=== PATIENT | male | born 1945 | race Caucasian/White ===

== ENCOUNTER 2016-07-03 12:00 | Emergency (ER) | payer MEDICARE, OTHER ==
[2016-07-03 12:08] VITALS: BP 151/70; PULSE 71; RESP 16; TEMP 96.9
--- NOTE | 2016-07-03 12:32 | ED ---
ENT HPI - General Chief complaint: ENT Stated complaint: Ringing in Ear Time Seen by Provider: 07/03/16 12:14 Source: patient, RN notes reviewed Mode of arrival: ambulatory Limitations: no limitations - History of Present Illness Initial comments: Patient is 71-year-old male with a chief complaint of ringing in his left ear for approximately one month. Patient reports that this occurred when he was working on his lawnmower backfired and the noise to instructed his eardrum. Patient reports that he size primary care doctor and was told that there is a perforated eardrum. Patient has been placed on sleeping pills and nasal spray as well as Xanax to help him fall asleep due to the ringing. Patient reports that he has a set up an appointment with the [place] ENT specialist however they've not gotten Bactrim. Patient reports that he thinks that the medications he isn' t taking his been drying him out. He reports that he has been trying to stay hydrated. Patient states that he's had normal urination and has no vomiting or other causes of dehydration. Patient states that he does have a perforated right eardrum as well from the past. He states that he has no problems with his right ear. - Related Data Home Medications Medication Instructions Recorded Confirmed Aspirin 1 tab PO DAILY 11/09/13 07/03/16 Lisinopril [Zestril] 10 mg PO DAILY 11/09/13 07/03/16 Metoprolol Tartrate [Lopressor] 25 mg PO BID 11/09/13 07/03/16 Simvastatin [Zocor] 40 tab PO BID 11/09/13 07/03/16 Fluticasone Propionate [Flovent 50 mcg INHALATION 07/03/16 Diskus] Melatonin 3 mg PO 07/03/16 07/03/16 Previous Rx's Medication Instructions Recorded ALPRAZolam [Xanax] 0.5 mg PO HS #10 tablet 11/09/13 Allergies Allergy/AdvReac Type Severity Reaction Status Date / Time No Known Allergies Allergy Verified 07/03/16 12:08 Review of Systems ROS Statement: Those systems with pertinent positive or pertinent negative responses have been documented in the HPI. ROS Other: All systems not noted in ROS Statement are negative. Past Medical History Past Medical History: Hyperlipidemia, Hypertension Additional Past Medical History / Comment(s): psoriasis History of Any Multi-Drug Resistant Organisms: None Reported Past Surgical History: No Surgical Hx Reported Past Psychological History: No Psychological Hx Reported Smoking Status: Former smoker Past Alcohol Use History: None Reported Past Drug Use History: None Reported General Exam Limitations: no limitations General appearance: alert, in no apparent distress Head exam: Present: atraumatic, normocephalic, normal inspection Eye exam: Present: normal appearance, PERRL, EOMI. Absent: scleral icterus, conjunctival injection, periorbital swelling ENT exam: Present: normal exam, mucous membranes moist. Absent: TM's normal bilaterally (Right eardrum perforation at the at o'clock position. Left ear drum appears to be intact possible small perforation over the 9 o'clock position as well.) Neck exam: Present: normal inspection. Absent: tenderness, meningismus, lymphadenopathy Respiratory exam: Present: normal lung sounds bilaterally. Absent: respiratory distress, wheezes, rales, rhonchi, stridor Cardiovascular Exam: Present: regular rate, normal rhythm, normal heart sounds. Absent: systolic murmur, diastolic murmur, rubs, gallop, clicks GI/Abdominal exam: Present: soft, normal bowel sounds. Absent: distended, tenderness, guarding, rebound, rigid Extremities exam: Present: normal inspection, full ROM, normal capillary refill. Absent: tenderness, pedal edema, joint swelling, calf tenderness Back exam: Present: normal inspection Neurological exam: Present: alert, oriented X3, CN II-XII intact Psychiatric exam: Present: normal affect, normal mood Skin exam: Present: warm, dry, intact, normal color. Absent: rash Course Vital Signs 07/03/16 12:02 Temperature 96.9 F L Pulse Rate 71 Respiratory 16 Rate Blood Pressure 151/70 O2 Sat by Pulse 95 Oximetry Medical Decision Making - Medical Decision Making Patient is 71-year-old male with a chief complaint of ringing in his left ear for approximately one month. Patient reports that this occurred when he was working on his lawnmower backfired and the noise to instructed his eardrum. Patient reports that he size primary care doctor and was told that there is a perforated eardrum. Patient has been placed on sleeping pills and nasal spray as well as Xanax to help him fall asleep due to the ringing. Patient advised to follow-up with ENT specialist. I did recommend for him to try Leibold flavonoid [id number] medication. Also recommended for him to continue to use the sleeping pills and nasal sprays. Discussed to remain hydrated and follow -up with ENT specialist. Return parameters discussed. Patient understands treatment plan and will comply. Disposition Clinical Impression: Tinnitus, left ear Disposition: HOME SELF-CARE Condition: Good Instructions: Tinnitus (ED) Additional Instructions: Make sure the patient remains hydrated and drinks 64 ounces of water daily. Patient also advised to purchase lipoflavonoid OTC pills for tinnitus from a drug store. Continue to take anxiety and nasal spray medication. Also use saline nasal spray for dryness. Referrals: Eliud Quezada DO [Primary Care Provider] - 1-2 days Sly Foley DO [Doctor of Osteopathic Medicine] - 1-2 days Time of Disposition: 12:30
== END 2016-07-03 13:00 | disposition home or self-care (01) ==
LOC: EC 12:00
DX: H93.12 Tinnitus, left ear (principal); I10 Essential (primary) hypertension; E78.5 Hyperlipidemia, unspecified; Z87.891 Personal history of nicotine dependence; Z79.82 Long term (current) use of aspirin; Z79.51 Long term (current) use of inhaled steroids; Z79.899 Other long term (current) drug therapy
CPT/HCPCS: 99283

== ENCOUNTER 2016-07-25 12:42 | Emergency (ER) | payer OTHER ==
--- NOTE | 2016-07-25 15:25 | ED ---
General Adult HPI - General Chief complaint: Urogenital Stated complaint: Male Time Seen by Provider: 07/25/16 15:11 Source: patient, RN notes reviewed Mode of arrival: ambulatory Limitations: no limitations - History of Present Illness Initial comments: Patient is a pleasant [age]-year-old male presenting to the emergency department complaining of difficulty with urination. Onset was a few weeks ago. Patient was taking vitamins for tinnitus and feels this plate a factor. Patient stopped taking them several days ago however symptoms are getting worse. Patient states he feels like he frequently needs to urinate and has difficult time getting started. does not feel he is retaining urine. No suprapubic fullness. No dysuria or hematuria. No fever. No history of similar symptoms previously. - Related Data Home Medications Medication Instructions Recorded Confirmed Aspirin 325 mg PO DAILY 11/09/13 07/25/16 ALPRAZolam [Xanax] 0.5 mg PO DAILY PRN 07/25/16 07/25/16 Atenolol [Tenormin] 25 mg PO BID 07/25/16 07/25/16 Ergocalciferol [Vitamin D2] 50,000 unit PO Q7D 07/25/16 07/25/16 Lisinopril 40 mg PO DAILY 07/25/16 07/25/16 Pravastatin Sodium [Pravachol] 40 mg PO HS 07/25/16 07/25/16 Allergies Allergy/AdvReac Type Severity Reaction Status Date / Time No Known Allergies Allergy Verified 07/25/16 15:07 Review of Systems ROS Statement: Those systems with pertinent positive or pertinent negative responses have been documented in the HPI. ROS Other: All systems not noted in ROS Statement are negative. Constitutional: Denies: fever Eyes: Denies: eye pain ENT: Denies: ear pain Respiratory: Denies: cough Cardiovascular: Denies: chest pain Endocrine: Denies: fatigue Gastrointestinal: Denies: abdominal pain Genitourinary: Reports: urgency, frequency. Denies: dysuria Musculoskeletal: Denies: back pain Skin: Denies: rash Past Medical History Past Medical History: Hyperlipidemia, Hypertension Additional Past Medical History / Comment(s): psoriasis, tinnitus History of Any Multi-Drug Resistant Organisms: None Reported Past Surgical History: No Surgical Hx Reported Past Psychological History: No Psychological Hx Reported Smoking Status: Former smoker Past Alcohol Use History: None Reported Past Drug Use History: None Reported General Exam Limitations: no limitations General appearance: alert, in no apparent distress Head exam: Present: atraumatic Eye exam: Present: normal appearance, PERRL ENT exam: Present: normal oropharynx Neck exam: Present: normal inspection Respiratory exam: Present: normal lung sounds bilaterally Cardiovascular Exam: Present: regular rate, normal rhythm GI/Abdominal exam: Present: soft. Absent: tenderness exam: Present: normal inspection. Absent: testicular tenderness, urethral discharge, scrotal swelling Extremities exam: Present: normal inspection. Absent: pedal edema Neurological exam: Present: alert Psychiatric exam: Present: normal affect, normal mood Skin exam: Absent: rash Course Vital Signs 07/25/16 07/25/16 13:36 15:36 Temperature 98.2 F 97.7 F Pulse Rate 75 72 Respiratory 16 18 Rate Blood Pressure 141/68 157/57 O2 Sat by Pulse 94 L 95 Oximetry - Reevaluation(s) Reevaluation #1: 07/25/16 15:24 Patient did urinate recently in the waiting room. Bladder scan with 387 mL Disposition Clinical Impression: Urinary retention Disposition: HOME SELF-CARE Condition: Stable Instructions: Urinary Retention in Men (ED) Additional Instructions: Please follow-up with urology within 1 week, phone number provided. Return for pain, fevers, worsening symptoms or any other concerns. Please discontinue vitamins for ringing of the ear Referrals: Eliud Quezada DO [Primary Care Provider] - 1-2 days Albaro Arana MD [STAFF PHYSICIAN] - 1-2 days Time of Disposition: 15:39
[2016-07-25 15:57] VITALS: BP 157/57; PULSE 72; RESP 18; TEMP 97.7
== END 2016-07-25 16:33 | disposition home or self-care (01) ==
LOC: EC 12:42
DX: R33.9 Retention of urine, unspecified (principal); E78.5 Hyperlipidemia, unspecified; I10 Essential (primary) hypertension; Z79.82 Long term (current) use of aspirin; Z79.899 Other long term (current) drug therapy; Z87.891 Personal history of nicotine dependence
CPT/HCPCS: 51702; 51798; 99283

== ENCOUNTER 2016-07-31 17:41 | Emergency (ER) | payer MEDICARE, OTHER ==
[2016-07-31 17:45] VITALS: RESP 20; TEMP 97.8
[2016-07-31 18:43] VITALS: BP 132/78; PULSE 69
--- NOTE | 2016-07-31 18:44 | ED ---
General Adult HPI - General Chief complaint: Urogenital Stated complaint: Catheter problems Time Seen by Provider: 07/31/16 18:29 Source: patient, RN notes reviewed Mode of arrival: ambulatory Limitations: no limitations - History of Present Illness Initial comments: Patient is a 71-year-old male who presents emergency room today with a chief complaint of some urinary retention. Patient patient mitts that he had recently been seen here in the emergency room for urinary retention and had a full catheter placed. He states he had this taken out at the urologist office yesterday. States he was doing well yesterday. States today at times she's feels like he is retaining some urine. He states he feels it is not completely emptying his bladder at times. He denies any other complaints or associated symptoms at this time. Patient denies any recent fever, chills, shortness of breath, chest pain, back pain, abdominal pain, nausea or vomiting, numbness, headache, visual change, or any other complaints. - Related Data Home Medications Medication Instructions Recorded Confirmed Aspirin 325 mg PO AC-SUPPER 11/09/13 07/31/16 ALPRAZolam [Xanax] 0.5 mg PO HS PRN 07/25/16 07/31/16 Atenolol [Tenormin] 25 mg PO BID 07/25/16 07/31/16 Ergocalciferol [Vitamin D2] 50,000 unit PO HUNTER 07/25/16 07/31/16 Lisinopril 40 mg PO DAILY 07/25/16 07/31/16 Pravastatin Sodium [Pravachol] 80 mg PO AC-SUPPER 07/25/16 07/31/16 Allergies Allergy/AdvReac Type Severity Reaction Status Date / Time No Known Allergies Allergy Verified 07/31/16 18:53 Review of Systems ROS Statement: Those systems with pertinent positive or pertinent negative responses have been documented in the HPI. ROS Other: All systems not noted in ROS Statement are negative. Past Medical History Past Medical History: Hyperlipidemia, Hypertension, Prostate Disorder Additional Past Medical History / Comment(s): psoriasis, tinnitus History of Any Multi-Drug Resistant Organisms: None Reported Past Surgical History: No Surgical Hx Reported Past Psychological History: No Psychological Hx Reported Smoking Status: Former smoker Past Alcohol Use History: None Reported Past Drug Use History: None Reported General Exam Limitations: no limitations General appearance: alert, in no apparent distress Head exam: Present: atraumatic, normocephalic, normal inspection Eye exam: Present: normal appearance, PERRL, EOMI. Absent: scleral icterus, conjunctival injection, periorbital swelling ENT exam: Present: normal exam, mucous membranes moist Neck exam: Present: normal inspection. Absent: tenderness, meningismus, lymphadenopathy Respiratory exam: Present: normal lung sounds bilaterally. Absent: respiratory distress, wheezes, rales, rhonchi, stridor Cardiovascular Exam: Present: regular rate, normal rhythm, normal heart sounds. Absent: systolic murmur, diastolic murmur, rubs, gallop, clicks GI/Abdominal exam: Present: soft, normal bowel sounds. Absent: distended, tenderness, guarding, rebound, rigid Extremities exam: Present: normal inspection, full ROM, normal capillary refill. Absent: tenderness, pedal edema, joint swelling, calf tenderness Back exam: Present: normal inspection Neurological exam: Present: alert, oriented X3, CN II-XII intact Psychiatric exam: Present: normal affect, normal mood Skin exam: Present: warm, dry, intact, normal color. Absent: rash Course Vital Signs 07/31/16 07/31/16 17:43 18:42 Temperature 97.8 F Pulse Rate 75 69 Respiratory 20 20 Rate Blood Pressure 175/75 132/78 O2 Sat by Pulse 98 97 Oximetry Medical Decision Making - Medical Decision Making Patient reexamined at this time shows no signs of distress. Patient's urinalysis. No sign of infection. Culture pending. Patient's bladder scan shows 150 mL postvoid. At this time patient has no difficulty going to the bathroom. He does admit that he feels that he needs to go and has been going more often. Patient did have Olson catheter removed yesterday. Was discussed with patient that fully catheter may cause symptoms of feeling like needing to go to the bathroom. Advised patient to try to expand out his voiding. Advised to follow-up with his urologist Tuesday morning with her scheduled appointment. At this time is not felt to be beneficial to place Olson catheter. Advised patient that if there is retention and unable to void at home that he should return for Olson catheter placement. - Lab Data Lab Results 07/31/16 Range/Units 18:42 Urine Color Light Yellow Urine Appearance Clear (Clear) Urine pH 5.5 (5.0-8.0) Ur Specific Orr 1.011 (1.001-1.035) Urine Protein Negative (Negative) Urine Glucose (UA) Negative (Negative) Urine Ketones Negative (Negative) Urine Blood Negative (Negative) Urine Nitrite Negative (Negative) Urine Bilirubin Negative (Negative) Urine Urobilinogen <2.0 (<2.0) mg/dL Ur Leukocyte Esterase Negative (Negative) Disposition Clinical Impression: Voiding difficulty Disposition: HOME SELF-CARE Condition: Good Additional Instructions: Please follow-up the urologist with her scheduled appointment Tuesday. Please try to space out voiding as discussed. Please return to emergency room if there is any retention or for any increase or worsening of symptoms. Referrals: Eliud Quezada DO [Primary Care Provider] - 1-2 days Julio Adrian MD [STAFF PHYSICIAN] - 1-2 days Time of Disposition: 19:21
[2016-07-31 18:58] LABS: Appearance,Urine Clear (Clear); Bilirubin,Urine Negative (Negative); Glucose,Urine (UA) Negative (Negative); Ketones,Urine Negative (Negative); Leukocyte Esterase,Urine Negative (Negative); Nitrite,Urine Negative (Negative); PH, Urine 5.5 (5.0-8.0); Protein,Urine Negative (Negative); Specific Gravity,Urine 1.011 (1.001-1.035); UA Billing (MACRO vs. MICRO) CHEM; Urobilinogen,Urine <2.0 mg/dL (<2.0)
== END 2016-07-31 19:41 | disposition home or self-care (01) ==
LOC: EC 17:41
DX: R33.9 Retention of urine, unspecified (principal); E78.5 Hyperlipidemia, unspecified; I10 Essential (primary) hypertension; N42.9 Disorder of prostate, unspecified; Z87.891 Personal history of nicotine dependence; Z79.82 Long term (current) use of aspirin; Z79.899 Other long term (current) drug therapy
CPT/HCPCS: 51798; 81003; 87086; 99284

== ENCOUNTER 2017-05-03 07:42 | Day surgery (SDC) | payer MEDICARE, OTHER ==
[2017-04-29 11:17] VITALS: BMI 29.5
[~2017-05-03 07:42] MED LIST: LACTATED RINGERS 1,000 ML IV SCH; LIDOCAINE 1% 20 ML VIAL (10MG/ML) FOR IV START INTRADERMA PRN
[2017-05-03 09:07] VITALS: RESP 18; TEMP 98.1
[2017-05-03] MEDS ORDERED: LACTATED RINGERS 1,000 ML IV ONE (09:13)
[2017-05-03] MEDS ORDERED: LIDOCAINE 1% INJ 10MG/ML (20 ML MDV) ONE (09:21)
[2017-05-03] MEDS ORDERED: PROPOFOL 10 MG/ML 20 ML VIAL IV ONE (09:21)
--- NOTE | 2017-05-03 09:55 | P.PCN ---
Date of Procedure: 05/03/17 Procedure(s) Performed: Procedure: Colonoscopy and polypectomy. Preoperative diagnosis: Hemoccult-positive stools. Postoperative diagnosis: Small sigmoid polyp snared but no large polyps or cancer. Preparation: HalfLytely prep. Sedation: Was provided by anesthesia. Brief clinical history: The patient is a 72-year-old male who I have evaluated in the office regarding Hemoccult-positive stools. The patient has no abdominal complaints, overt bleeding or anemia. No upper GI symptoms. He had no prior colonoscopies. This evaluation is to assess for neoplasia. Procedure: With the patient on his left lateral decubitus position and after informed consent and adequate sedation, the perianal area was inspected and it did not show any fissures or fistulas. There were no masses felt on digital rectal examination. The Olympus CFQ 160L video colonoscope was then inserted in the rectum in the usual fashion and advanced to the cecum. The preparation was less than ideal and there was some thick fecal secretions and fecal debris sticking to the wall of the bowel. No large polyps or cancer were seen or any obvious diverticular disease. In the proximal sigmoid there was a small polyp which I snared and retrieved by suction but there were no large polyps or cancer. I retroflexed the endoscope in the rectum before the endoscope was withdrawn. The patient tolerated the procedure well. Plan: The patient was reassured. Will await pathology results. In the absence of upper GI complaints or anemia, I did not recommend upper GI workup for his Hemoccult positive stools. For future screening and surveillance, I am recommending repeat exam in 5 years. He will follow up with you as planned.
[2017-05-03 10:21] VITALS: BP 122/65; PULSE 54
== END 2017-05-03 10:27 | disposition home or self-care (01) ==
LOC: ORWHC2ENDO 07:42
DX: D12.5 Benign neoplasm of sigmoid colon (principal); I10 Essential (primary) hypertension; E78.5 Hyperlipidemia, unspecified; K92.2 Gastrointestinal hemorrhage, unspecified; Z79.82 Long term (current) use of aspirin; Z79.899 Other long term (current) drug therapy
CPT/HCPCS: 88305; 45385; J2001; J2704

== ENCOUNTER → 2018-10-19 | Outpatient (CLI) | payer OTHER ==
--- NOTE | 2018-10-19 07:40 | US ---
EXAMINATION TYPE: US duplex aorta DATE OF EXAM: 10/19/2018 COMPARISON: NONE CLINICAL HISTORY: Z13.9 Encounter for screening, unspecified. AAA EXAM MEASUREMENTS: Abdominal Aorta: Proximal: 2.3 x 2.7cm Mid: 2.0 x 2.1cm Distal: 1.9 x 1.9cm Right Iliac: 1.0 x 1.1cm Left Iliac: 1.2 x 1.0cm No AAA seen at this time, limited visualization due to overlying midline bowel gas. IMPRESSION: No sonographic evidence of abdominal aortic aneurysm in the visualized portions of the ab dominal aorta or proximal common iliac arteries.
== END | disposition home or self-care (01) ==
LOC: RADUSWWP 06:59
DX: Z13.6 Encounter for screening for cardiovascular disorders (principal); Z87.891 Personal history of nicotine dependence
CPT/HCPCS: 93979

== ENCOUNTER → 2022-03-09 | Outpatient (CLI) | payer OTHER ==
--- NOTE | 2022-03-09 08:54 | CTL ---
EXAMINATION TYPE: CT Low Dose Lung DATE OF EXAM ORDERED: 03/09/2022 HISTORY: . Lung cancer screening CT DLP: 102.[address] CTDI: 2.80 mGy Automated exposure control for dose reduction was used. SCREENING VISIT: COMPARISON: None TECHNIQUE: Low dose computed tomography scan was performed through the chest at 1 mm thick sections a nd reconstructed images in multiple planes at 1 mm and [address] DIAGNOSTIC QUALITY: Satisfactory FINDINGS: There is moderate emphysematous changes in a centrilobular pattern. No focal pneumonia or pleural eff usion. No pneumothorax. No interstitial edema. No evidence of pleural or parenchymal calcifications. There is a 3 mm subpleural nodule right lower l obe axial image 176. Atherosclerotic change of the aorta with no evidence of aneurysm. Coronary artery calcification noted . Trace of pericardial fluid. Heart size normal. lobular septal thickening at the lung bases can be associated with pulmonary fibrosis correlate clinically. IMPRESSION: 1. Moderate emphysematous changes with benign-appearing 3 mm subpleural nodule right lower lobe. 2. Coronary artery calcification correlate clinically. CT LUNG RAD AND CT CHEST RECOMMENDATION: Lung-Rad 2 Benign Appearance or Behavior: Continue annual sc reening with LDCT in 12 months. S Modifier (other clinically significant findings): S
== END | disposition home or self-care (01) ==
LOC: RADCTMAIN 07:29
DX: Z12.2 Encounter for screening for malignant neoplasm of respiratory organs (principal); J43.9 Emphysema, unspecified; R91.1 Solitary pulmonary nodule; I25.10 Atherosclerotic heart disease of native coronary artery without angina pectoris; Z87.891 Personal history of nicotine dependence
CPT/HCPCS: 71271

== ENCOUNTER 2022-11-03 07:54 | Day surgery (SDC) | payer OTHER ==
[~2022-11-03 07:54] MED LIST changes: +LIDOCAINE 1% (10MG/ML) FOR IV START INTRADERMA PRN; -LIDOCAINE 1% 20 ML VIAL (10MG/ML) FOR IV START INTRADERMA PRN
[2022-11-03 08:16] VITALS: TEMP 97
[2022-11-03] MEDS ORDERED: PROPOFOL 10 MG/ML 20 ML VIAL IV ONE (09:00)
--- NOTE | 2022-11-03 09:29 | P.PCN ---
Date of Procedure: 11/03/22 Procedure(s) Performed: BRIEF HISTORY: Patient is a 77-year-old pleasant white male scheduled for an elective colonoscopy as a part of evaluation of prior history of colon polyps. Last colonoscopy was 5 years ago. PROCEDURE PERFORMED: Colonoscopy. PREOPERATIVE DIAGNOSIS: History of colon polyps. IV sedation per Anesthesia. PROCEDURE: After informed consent was obtained, the patient, was brought into the endoscopy unit. IV sedation was administered by Anesthesia under continuous monitoring. Digital rectal examination was normal. Initially the Olympus CF-160 flexible video colonoscope was then inserted in the rectum, gradually advanced into the cecum without any difficulty. Careful examination was performed as the scope was gradually being withdrawn. Ileocecal valve and the appendiceal orifice were visualized and appeared normal. Prep was excellent. Mucosa of the cecum, ascending colon, transverse colon, descending colon, sigmoid colon, and rectum appeared normal. At her sigmoid diverticulosis. Retroflexion was performed in the rectum and no lesions were seen. The patient tolerated the procedure well. IMPRESSION: Normal-appearing colon from rectum to cecum with no evidence of colorectal neoplasia. Scattered sigmoid diverticulosis. RECOMMENDATIONS: Findings of this examination were discussed with the patient as well as his family. He was advised to have a repeat colonoscopy in 5 years because of prior history of colon polyps.
[2022-11-03] MEDS ORDERED: IV FLUID CONTINUATION 1,000 ML IV ONE (09:40)
[2022-11-03 09:52] VITALS: PULSE 61; RESP 16
[2022-11-03 10:13] VITALS: BP 100/67
== END 2022-11-03 10:32 | disposition home or self-care (01) ==
LOC: ORWHC2ENDO 07:54
PROVIDERS: ATTEND Internal Medicine Gastroenterology
DX: Z12.11 Encounter for screening for malignant neoplasm of colon (principal); Z86.010 Personal history of colon polyps; K57.30 Diverticulosis of large intestine without perforation or abscess without bleeding; I10 Essential (primary) hypertension; E78.5 Hyperlipidemia, unspecified; Z79.82 Long term (current) use of aspirin; Z98.890 Other specified postprocedural states; Z87.891 Personal history of nicotine dependence; Z79.899 Other long term (current) drug therapy
CPT/HCPCS: 45378; J2704

== ENCOUNTER → 2023-03-17 | Outpatient (CLI) | payer OTHER ==
--- NOTE | 2023-03-17 12:25 | CTL ---
EXAMINATION TYPE: CT Low Dose Lung DATE OF EXAM ORDERED: 03/17/2023 HISTORY: . Lung cancer screening CT DLP: 99.[address] CTDI: 2.7 mGy Automated exposure control for dose reduction was used. COMPARISON: 03/09/2022. TECHNIQUE: Low dose computed tomography scan was performed through the chest at 1 mm thick sections a nd reconstructed images in multiple planes at 1 mm and [address] DIAGNOSTIC QUALITY: Satisfactory FINDINGS: LUNG NODULES: None. LUNGS: COPD: Severity: Severe centrilobular emphysema seen diffusely. Fibrosis: Severity: None Lymph nodes: No adenopathy. Other findings: None. RIGHT PLEURAL SPACE: Effusion: None Calcification: None Thickening: None Pneumothorax: None LEFT PLEURAL SPACE: Effusion: None Calcification: None Thickening: None Pneumothorax: None HEART: Heart Size: Mild cardiomegaly Coronary Calcification: Moderate coronary calcification is seen in the left anterior descending. Ther e is significant vascular calcination otherwise seen within the thoracic aorta without evidence of an eurysmal dilation. Pericardial Effusion: None OTHER FINDINGS: Upper abdomen: None Bony thorax: None Supraclavicular region: None Other: None IMPRESSION: 1. Negative lung cancer screening examination for new or significant pulmonary nodules. 2. Severe emphysema. 3. Moderate coronary calcification. CT LUNG RAD AND CT CHEST RECOMMENDATION: Lung-Rad 1 Negative: Continue annual screening with LDCT in 12 months.
== END | disposition home or self-care (01) ==
LOC: RADCTMAIN 11:08
DX: Z12.2 Encounter for screening for malignant neoplasm of respiratory organs (principal); J43.2 Centrilobular emphysema; I25.10 Atherosclerotic heart disease of native coronary artery without angina pectoris; Z87.891 Personal history of nicotine dependence
CPT/HCPCS: 71271